=== PATIENT | male | born 1945 | race Caucasian/White ===

== ENCOUNTER 2019-05-23 08:45 | Day surgery (SDC) | payer MEDICARE, BC ==
[~2019-05-23] VITALS: Ht 172.7 cm; Wt 98.4 kg
--- NOTE | ~2019-05-23 | OP ---
PATIENT NAME: RENAN FORD MEDICAL RECORD: [id number] :47 LOCATION:D.OPS ADMISSION DATE: SURGEON: RENAN SANCHEZ MD DATE OF OPERATION: 05/23/2019 PREOPERATIVE DIAGNOSES: 1. Intractable symptomatic external hemorrhoids. 2. 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 POSTOPERATIVE DIAGNOSES: 1. Intractable symptomatic external hemorrhoids. 2. 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 3. Anal ulcer at the 4-5 o'clock position. PROCEDURES: 1. Procedure for prolapse and hemorrhoids. 2. Incisional biopsies of the anus. SURGEON: Renan Sanchez MD CHIEF INNOVATION OFFICER: None. BLOOD LOSS: Less than 25 cc. ANESTHESIA: General. COMPLICATIONS: None. The risks, possible complications, and alternatives to the procedure were explained to the patient. He elects to proceed. The discussion specifically included, but was not limited to, bleeding requiring emergency reoperation, infection, as well as possible need for additional hemorrhoidal procedure in the future. The patient has undergone a hemorrhoidectomy in the distant past. OPERATIVE COURSE: The patient was conveyed to the operating room electively on 05/23/2019. General anesthesia was induced by the anesthesia staff. The patient was placed in the lithotomy position with the buttocks taped laterally. The anus and perianal areas were sterilely prepped and draped. I dilated the anus laterally to 3 fingers. The PPH dilator and clear retractor were then placed. The clear retractor was then sutured to the surrounding anoderm with 2-0 silks. A mucosal pursestring suture of 3-0 Prolene was applied 1 cm cephalad to the clear retractor. The PPH stapling device was inserted and the pursestring suture was closed and then tied. The anvil was cephalad to this pursestring suture. I then tightened down on the PPH device. It was held in place for 3 minutes and then fired. It was then removed. There was an entire donut of rectal mucosal and upper hemorrhoidal tissue within the stapling device. Bleeding along the anastomotic staple line was controlled with a suture ligature of 3-0 Vicryls. Three internal hemorrhoidal bundles were suture ligated with 3-0 Vicryls. There was an ulcerated area from 4-5 o'clock with the patient in the lithotomy position. I noted no evidence of any condylomata. This ulcerated OPERATIVE REPORT [id number] RENAN FORD area was then biopsied with an ENT biopsy forceps. Hemostasis was achieved with the electrocautery. A combination of Marcaine and a steroid preparation were used to infiltrate the perianal tissues. Gelfoam was then applied within the anus and lower rectum. A topical anesthetic cream was applied to the external hemorrhoids. The patient was then extubated and conveyed to the post-anesthesia care unit, where he was in stable condition. He will be dismissed home on hydrocodone as well as Valium and Colace. I will see him in the office in 2-3 weeks. TRANSINT:[id number] Voice Confirmation ID: [id number] DOCUMENT ID: [id number] RENAN SANCHEZ MD CC: [id number] DICTATION DATE: 05/24/19 0858 EMERGENCY ROOM TECHNICIAN: 05/24/19 0921 [facility] [place] 05/23/19 [id number] [place] [address]
[~2019-05-23 08:45] MED LIST: CARAFATE1 G PO; CELEXA40 MG PO; FLOMAX0.4 MG PO; K-DUR20 MEQ PO; LIPITOR80 MG PO; LISINOPRIL-HCT1 EAC7 PO; OMEPRAZOLE DR 20 MG
[2019-05-23 09:31] LABS: HEMATOCRIT 44.1 % (42.0-54.0); HEMOGLOBIN 15.6 g/dL (13.5-17.5); MCH 30.5 pg (26.0-34.0); MCHC 35.4 g/dL (31.0-37.0); MCV 86.1 fL (80.0-100.0); RBC 5.12 10x6/uL (4.20-6.10); RDW 12.8 % (11.5-14.5); WBC 8.6 10x3/uL (4.8-10.8)
--- NOTE | 2019-05-23 10:10 | NUR ---
[employer] CALLED FOR A PSYCH EVALUATION.
[2019-05-23 10:21] VITALS: BP 113/62; Ht 172.7 cm; Wt 98.4 kg
--- NOTE | 2019-05-23 10:46 | NUR ---
STAFF MEMBER FROM [facility] HERE FOR EVALUATION.
--- NOTE | 2019-05-23 11:01 | NUR ---
DR. ARAGON NOTIFIED AND REVIEWED PT'S BEHAVIOR AND ASSESSMENT RESULTS. PT IS A LOW RISK PER DR. ARAGON. DR. ARAGON STATED TO GIVE RESOURCES TO PT AT TIME OF DISCHARGE. NO FURTHER ORDERS AT THIS TIME. RESOURCES REVIEWED WITH PT AND HE VERBALIZED UNDERSTANDING.
--- NOTE | 2019-05-23 20:55 | NUR ---
PATIENT AMBULATES TO BATHROOM AND VOIDS IN TOILET, NOT WITNESSED BY NURSE. PATIENT STATES "IT WASN'T A WHOLE LOT, BUT THERE WAS A STREAM." PIV DC'D WITH TIP INTACT. PATIENT DRESSING IN PERSONAL CLOTHING. DISCHARGE INSTRUCTIONS REVIEWED WITH PATIENT
--- NOTE | 2019-05-23 21:10 | NUR ---
DISCHARGED HOME VIA WHEELCHAIR TO PRIVATE VEHICLE WITH FRIEND
== END 2019-05-23 21:10 | disposition home or self-care (01) ==
LOC: D.OPS 08:45 → D.PAN 10:45 → D.OPS 11:00
PROVIDERS: Anesthesiology; ATTEND Surgery
DX: K64.4 Residual hemorrhoidal skin tags (principal); K64.2 Third degree hemorrhoids; K62.6 Ulcer of anus and rectum; Z01.812 Encounter for preprocedural laboratory examination

== ENCOUNTER 2019-06-05 09:31 | Emergency (ER) | payer MEDICARE, BC ==
[~2019-06-05] VITALS: Ht 172.7 cm; Wt 102.3 kg
[2019-06-05 09:38] VITALS: Ht 172.7 cm; Wt 102.3 kg
[2019-06-05 10:15] LABS: BASOPHILS 0.1 % (0-2); EOSINOPHILS 1.2 % (0-7); HEMATOCRIT 28.1 % (42.0-54.0); HEMOGLOBIN 9.3 g/dL (13.5-17.5); IMMATURE GRANULOCYTES 0.2 % (0-5); LYMPHOCYTES 11.9 % (15-50); MCH 29.6 pg (26.0-34.0); MCHC 33.1 g/dL (31.0-37.0); MCV 89.5 fL (80.0-100.0); MEAN PLATELET VOLUME 7.8 fL (7.4-10.4); MONOCYTES 8.7 % (2-11); NEUTROPHILS 77.9 % (40-80); PLATELET COUNT 283 10x3/uL (130-400); RBC 3.14 10x6/uL (4.20-6.10); RDW 13.6 % (11.5-14.5); WBC 12.7 10x3/uL (4.8-10.8)
[2019-06-05 10:20] LABS: ALBUMIN 2.5 g/dL (3.4-5.0); ANION GAP 13.9 mmol/L (8-16); BILIRUBIN - TOTAL 0.36 mg/dL (0.2-1.3); CALCIUM 8.5 mg/dL (8.5-10.1); CARBON DIOXIDE 26.1 mmol/L (21.0-32.0); CREATININE - SERUM 5.5 mg/dL (0.6-1.3); PROTEIN - SERUM 6.9 g/dL (6.4-8.2)
[2019-06-05 10:30] LABS: APPEARANCE CLEAR (CLEAR); BACTERIA FEW /hpf (NONE SEEN); BILIRUBIN NEGATIVE (NEGATIVE); COLOR YELLOW (YELLOW); EPITHELIAL CELLS RARE /hpf (0-5); GLUCOSE NEGATIVE (NEGATIVE); KETONE NEGATIVE (NEGATIVE); NITRITE NEGATIVE (NEGATIVE); PROTEIN NEGATIVE (NEGATIVE); RED CELLS - URINE 0-5 /hpf (0-5); UROBILINOGEN NORMAL (NORMAL)
[2019-06-05 10:31] LABS: WHITE CELLS - URINE NSEEN /hpf (0-5)
[2019-06-05] MEDS ORDERED: CIPRO500 MG PO (14:12)
[2019-06-05 15:42] VITALS: BP 128/68
== END 2019-06-05 15:40 | disposition home or self-care (01) ==
LOC: D.ER 09:31
PROVIDERS: Family Medicine
DX: N13.30 Unspecified hydronephrosis (principal); N32.89 Other specified disorders of bladder; K59.03 Drug induced constipation; N40.0 Benign prostatic hyperplasia without lower urinary tract symptoms

== ENCOUNTER 2019-06-06 08:54 | Emergency (ER) | payer MEDICARE, BC ==
[~2019-06-06] VITALS: Ht 172.7 cm; Wt 102.3 kg
[~2019-06-06 08:54] MED LIST changes: +CIPRO500 MG PO
[2019-06-06 08:59] VITALS: Ht 172.7 cm; Wt 102.3 kg
[2019-06-06 09:37] LABS: BASOPHILS 0.1 % (0-2); EOSINOPHILS 0.5 % (0-7); HEMATOCRIT 26.4 % (42.0-54.0); HEMOGLOBIN 8.8 g/dL (13.5-17.5); IMMATURE GRANULOCYTES 0.4 % (0-5); LYMPHOCYTES 6.2 % (15-50); MCH 29.4 pg (26.0-34.0); MCHC 33.3 g/dL (31.0-37.0); MCV 88.3 fL (80.0-100.0); MEAN PLATELET VOLUME 7.9 fL (7.4-10.4); MONOCYTES 9.9 % (2-11); NEUTROPHILS 82.9 % (40-80); PLATELET COUNT 285 10x3/uL (130-400); RBC 2.99 10x6/uL (4.20-6.10); RDW 13.4 % (11.5-14.5); WBC 15.1 10x3/uL (4.8-10.8)
[2019-06-06 09:49] LABS: INR 1.13 (0.85-1.17)
[2019-06-06 09:51] LABS: ALBUMIN 2.3 g/dL (3.4-5.0); ANION GAP 12.7 mmol/L (8-16); BILIRUBIN - TOTAL 0.35 mg/dL (0.2-1.3); CALCIUM 8.7 mg/dL (8.5-10.1); CARBON DIOXIDE 26.3 mmol/L (21.0-32.0); PROTEIN - SERUM 6.6 g/dL (6.4-8.2)
[2019-06-06 09:52] LABS: CREATININE - SERUM 2.6 mg/dL (0.6-1.3)
[2019-06-06 11:00] VITALS: BP 129/66
== END 2019-06-06 11:00 | disposition home or self-care (01) ==
LOC: D.ER 08:54
PROVIDERS: Family Medicine
DX: R31.9 Hematuria, unspecified (principal); N17.9 Acute kidney failure, unspecified; D64.9 Anemia, unspecified; N32.89 Other specified disorders of bladder

== ENCOUNTER 2019-06-26 07:47 | Day surgery (SDC) | payer MEDICARE, BC ==
[2019-06-24 11:44] LABS: HEMATOCRIT 35.9 % (42.0-54.0); MCH 29.6 pg (26.0-34.0); MCHC 33.4 g/dL (31.0-37.0); MCV 88.6 fL (80.0-100.0); MEAN PLATELET VOLUME 7.9 fL (7.4-10.4); RBC 4.05 10x6/uL (4.20-6.10); RDW 13.2 % (11.5-14.5); WBC 5.2 10x3/uL (4.8-10.8)
[2019-06-24 12:00] LABS: CALC OSMOLALITY 273 mosm/kg (275-300); CALCIUM 9.2 mg/dL (8.5-10.1); CARBON DIOXIDE 29.3 mmol/L (21.0-32.0); CHLORIDE - SERUM 100 mmol/L (98-107); GLUCOSE 103 mg/dL (74-106); SODIUM 136 mmol/L (136-145); UREA NITROGEN 18 mg/dL (7-18); eGFR NON AFRICAN AMERICAN 78 mL/min (90-120)
[~2019-06-26] VITALS: Ht 172.7 cm; Wt 95.9 kg
[2019-06-26] VITALS (11 sets, daily range): BP systolic 113–136; BP diastolic 59–79; Ht 172.7 cm; Wt 95.9 kg
[~2019-06-26 07:47] MED LIST changes: +ACETAMINOPHEN500 M1 PO; -OMEPRAZOLE DR 20 MG; +OMEPRAZOLE20 M1 PO
--- NOTE | 2019-06-26 13:24 | OP ---
PATIENT NAME: RENAN FORD MEDICAL RECORD: [id number] :47 LOCATION:D.MS Steven2202 ADMISSION DATE:06/26/19 SURGEON: RENAN SOTO MD DATE OF OPERATION: 06/26/2019 SURGEON: Renan Soto MD ANESTHESIA: TIVA by Dwayne Abreu CRNA DIAGNOSES: 1. Elevated PSA of 4.0. 2. 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 PROCEDURES: 1. Transrectal ultrasound and prostate biopsy. 2. UroLift times 6 implants. FINDINGS: On transrectal ultrasound, 90-gram prostate. Cystoscopy shows long obstructive lateral lobes with no median lobe. There were single ureteral orifices bilaterally, with no bladder tumors. The bladder is trabeculated. BLOOD LOSS: Minimal. CLINICAL HISTORY: This is a 74-year-old male, who came to the Emergency Room with urinary retention. They drained about 3 liters of urine from his bladder when the catheter was inserted. When he was in [place], he was being investigated for possible prostate cancer. At that time, he moved here and the prostate biopsy was never done. His PSA is 4.0 on 12/24/2018. He comes today to have a prostate biopsy done and also the UroLift procedure done to relieve his obstruction. HE IS ALLERGIC TO SULFA AND HYDROCODONE. We gave him [employer] camp recreation specialist to the OR. DESCRIPTION OF PROCEDURE: The patient was given IV sedation. He was then placed into lithotomy position. We first did the transrectal ultrasound. The probe was introduced and prostate size measurements were obtained. The prostate was quite large at 90 grams. Sextant biopsies were then obtained with at least 3 cores from each sextant. Once all the specimens were obtained, then the procedure was terminated. He was reprepped and redraped. The UroLift scope was introduced using the visual obturator. The penile urethra shows no strictures. The bilateral lateral lobes are obstructive, meeting in the midline. There is no significant median lobe. Into the bladder, we saw no bladder tumors. The bladder is trabeculated consistent with outlet obstruction. We then placed our first 2 units at the bladder neck level. These were placed 1.5 cm distal to the bladder neck at the anterolateral sulcus of the lateral lobes. One unit was placed on each side. This helped to open up the bladder neck region. The next 2 units were then placed at the level of the verumontanum. One unit was placed on each side at the anterolateral sulcus of the lateral lobes. Finally looking in with the obturator again we noticed that the mid portion of the prostate was still obstructive. We therefore placed 2 more units, one on each side. This was now at the mid urethral height at the mid urethral position. Once all these implants had been placed, then further cystoscopy showed a wide open urethral channel. The scope was then removed, leaving the fluid in the bladder. A 16-Samoan Kelly catheter was then inserted into the bladder and the balloon was inflated with 10 cc of sterile water. I will see him in followup next week to review the pathology results with him and also to see the effects of catheter OPERATIVE REPORT [id number] RENAN FORD removal on his urinary retention. TRANSINT:[id number] Voice Confirmation ID: [id number] DOCUMENT ID: [id number] RENAN SOTO MD at 1324 CC: [id number] DICTATION DATE: 06/26/19 1207 SENIOR PRODUCTION MANAGER: 06/26/19 1313 ADM IN [facility] [address] [place] [address]
--- NOTE | 2019-06-26 17:18 | NUR ---
DR. ARAGON NOTIFIED AND REVIEWED PT'S BEHAVIOR AND ASSESSMENT RESULTS. PT IS A LOW RISK PER DR. ARAGON. DR. ARAGON STATED TO GIVE RESOURCES TO PT AT TIME OF DISCHARGE. NO FURTHER ORDERS AT THIS TIME. RESOURCES REVIEWED WITH PT AND HE VERBALIZIED UNDERSTANDING.
[2019-06-27 00:12] VITALS: BP 101/54
[2019-06-27 06:35] VITALS: BP 95/53
[2019-06-27 08:34] VITALS: BP 111/52
--- NOTE | 2019-06-27 10:36 | NUR ---
IV THERAPY REMOVED FROM LEFT FOREARM. DISCHARGE INSTRUCTIONS GIVEN. PATIENT VERBALIZED UNDERSTANDING. ROSAS INSTRUCTIONS GIVEN AND VERBALIZED UNDERSTANDING. REFUSED WHEELCHAIR DOWNSTAIRS. REFUSED LEG BAG BUT REITERATED TEACHING OF CHANGING THE BAGS SINCE HE HAD A LEG BAG AT HOME.
== END 2019-06-27 10:38 | disposition home or self-care (01) ==
LOC: OBSVTIME → D.OPS 07:47 → D.MS 12:13 → D.OPS 12:50 → D.MS 12:51 → D.OPS 12:51 → OBSVTIME 12:51 → D.PAN 13:30 → D.OPS 13:30 → D.MS 06-27 10:38 → D.OPS 06-27 10:38
PROVIDERS: Anesthesiology; ATTEND Urology
DX: N32.0 Bladder-neck obstruction (principal); R33.9 Retention of urine, unspecified
CPT/HCPCS: 55700; C9740

== ENCOUNTER → 2019-07-02 19:41 | Outpatient (CLI) | payer MEDICARE, BC ==
[2019-06-26 15:51] VITALS: BMI 32.1
== END | disposition home or self-care (01) ==
LOC: D.LABREF 19:41
PROVIDERS: ATTEND Urology
DX: R31.9 Hematuria, unspecified (principal)

== ENCOUNTER → 2021-05-06 09:07 | Outpatient (CLI) | payer MEDICARE, BC ==
[2019-06-26 15:51] VITALS: BMI 32.1
== END | disposition home or self-care (01) ==
LOC: D.HCCECHO 09:07
PROVIDERS: ATTEND Internal Medicine Cardiovascular Disease
DX: R06.09 Other forms of dyspnea (principal)

== ENCOUNTER 2021-05-18 06:42 | Day surgery (SDC) | payer MEDICARE, BC ==
[~2021-05-18] VITALS: Ht 172.7 cm; Wt 109.1 kg
--- NOTE | ~2021-05-18 | HEMODYNAMI ---
PATIENT:JESSICA FORD MEDICAL RECORD: [id number] : 49 LOCATION:D.CAT ADMISSION DATE: 05/18/21 Generatedon:18:44 Patient name: JESSICA FORD Patient #: [id number] SSN: [id number] : 1945 Date of study: 05/18/2021 Page: Of Hemodynamic Procedure Report Patient Data Patient Demographics Procedure consent was obtained First Name: JESSICA Gender: Male Last Name: LILIANA : 1945 Middle Initial: ELDA Age: 75 year(s) Patient #: [id number] Race: SSN: [id number] Additional ID: [id number] Contact details Address: [address] [place] [address] State: [place] City: [place] Zip code: [address] Past Medical History Performed procedures and imaging results Date Procedure Procedure Results Comments 05/06/2021 Stress testing Positive->Intermediate with SPECT MPI risk Allergies Allergen Reaction Date Comments Reported Other allergy 05/18/2021 CELEBREX, HYDROCODONE, IBUPROFEN, SULFA Admission Admission Data Admission Date: 05/18/2021 Admission Time: 6:42 Arrival Date: 05/18/2021 Arrival Time: 0:00 Admit Source: Other Insurance Payor: Private health insurance [facility] #: [id number] Height (in.): 68 BSA: 2.21 (m2) Height (cm.): 172.72 BMI: 36.57 (kg/m2) Weight (lbs.): 240.5 Weight (kg.): 109.09 Lab Results Lab Result Date: 05/18/2021 Lab Result Time: 0:00 Biochemistry Name Units Result Min Max BUN mg/dl 16 --(---*)-- 7 18 Creatinine mg/dl 0.9 --(-*--)-- 0.6 1.3 eGFR ml/min 88.01133 -*(----)-- 90 120 NONAFRICAN CBC Name Units Result Min Max Hematocrit % 44.9 --(*---)-- 42 54 Hemoglobin g/dl 15.3 --(-*--)-- 13.5 17.5 Procedure Procedure Types Cath Procedure Diagnostic Procedure [facility] w/Coronaries FFR/IVUS FFR Initial Sedation Charges Moderate Sedation 10-24 minutes PCI Procedure Hemochron ACT Test Procedure Description Procedure Date Procedure Date: 05/18/2021 Procedure Start Time: 8:20 Procedure End Time: 8:40 Procedure Staff Name Function William Dunham MD Performing Physician Daquan Arango RN Nurse Addie Abraham RT Monitor Tara Velasquez RT Scrub Indication Dyspnea with exertion Pulmonary hypertension Procedure Data Cath Procedure Fluoroscopy Diagnostic fluoroscopy Total fluoroscopy Time: 4.3 time: 4.3 min min Diagnostic fluoroscopy Total fluoroscopy dose: 677 dose: 677 mGy mGy Contrast Material Contrast Material Type Amount (ml) Isovue 370 70 Entry Location Entry Primary Successful Side Size Upsize Upsize Entry Closure Grimm ccessful Closure Location (Fr) 1 (Fr) 2 (Fr) Remarks Device Remarks Radial Right 6 Fr Mechanical artery Short Compression Estimated blood loss: 12 ml Diagnostic catheters Device Type Used For End Catheter Placement DIAGNOSTIC [place] 110cm 5 Procedure Fr catheter ([id number]) Procedure Complications No complications Procedure Medications Medication Administration Route Dosage Oxygen etCO2 Nasal cannula 2 l/min Lidocaine 2% added to field 20 Heparin Flush Bag added to field 2 bags (1000units/500ml NS) 0.9% NaCl I.V. 100 ml/hr Radial Cocktail added to field 1 syringe (Verapamil 2mg/Nitro 400mcg/Heparin 1500units) Versed I.V. 1 mg Fentanyl I.V. 50 mcg Versed I.V. 1 mg Fentanyl I.V. 50 mcg Heparin Bolus I.V. 5000 units Hemodynamics Rest BSA: 2.21 (m2) HGB: 15.3 (g/dl) O2 Consumption: Estimated: 264.25 (ml/min) O2 Co nsumption indexed: Estimated:119.57 (ml/min/m) Heart Rate: 81 (bpm) Pressure Samples Time Site Value (mmHg) Purpose Heart Use Rate(bpm) 8:23 LV 158/-11,44 Snapshot 89 8:24 AO 119/60(82) Pullback 94 8:24 LV 140/-1,18 Pullback 94 Gradients Valve Time Site 1 Site 2 Mean SEP/DFP Peak To Heart Use (mmHg) (sec/min) Peak Rate (mmHg) (bpm) Aortic 8:24 LV AO 14 8 21 94 140/-1,18 119/60(82) Calculations Valve P-P Mean Valve Index Valve Source Name Gradient Area Flow (cm2) Aortic 21 14 21 14 Snapshots Pre Cath Intra NCS Post Cath Vital Signs Time Heart Resp SPO2 etCO2 NIBP (mmHg) Rhythm Pain Sedation Rate (ipm) (%) (mmHg) Status Level (bpm) 7:59:38 85 14 93 0 138/79(112) NSR 0 (11) 10(A) , No pain 8:05:54 82 14 95 0 128/83(111) NSR 0 (11) 10(A) , No pain 8:10:57 84 13 93 0 131/111(125) NSR 0 (11) 10(A) , No pain 8:15:51 85 14 92 0 126/74(99) NSR 0 (11) 10(A) , No pain 8:20:28 84 12 92 0 130/72(103) NSR 0 (11) 9(A) , No pain 8:25:56 87 15 93 0 125/73(109) NSR 0 (11) 9(A) , No pain 8:30:21 85 17 94 0 109/72(103) NSR 0 (11) 9(A) , No pain 8:35:20 81 15 96 0 Measuring NSR 0 (11) 9(A) , No pain 8:36:38 79 15 96 0 124/75(99) NSR 0 (11) 9(A) , No pain 8:42:26 78 14 96 0 125/77(104) NSR 0 (11) 10(A) , No pain Medications Time Medication Route Dose Verified Delivered Reason Note s Effectiveness by by 8:00:34 Oxygen etCO2 2 l/min Willima Buffie used for Nasal Roly Arango RN procedure cannula 8:00:42 Lidocaine 2% added 20ml William William for local to vial Roly Dunham MD anesthetic field 8:00:48 Heparin Flush added 2 bags William William used for Bag to Roly Dunham MD procedure (1000units/500ml field NS) 8:00:57 0.9% NaCl I.V. 100 William Buffie Per physician ml/hr Roly Arango RN 8:15:14 Versed I.V. 1 mg William Buffie for sedation Roly Arango RN 8:15:20 Fentanyl I.V. 50 mcg William Buffie for sedation Roly Arango RN 8:22:30 Radial Cocktail added 1 William William for (Verapamil to syringe Roly Dunham MD vasodilation 2mg/Nitro field 400mcg/Heparin 1500units) 8:24:14 Versed I.V. 1 mg William Buffie for sedation Roly Arango RN 8:24:17 Fentanyl I.V. 50 mcg William Buffie for sedation Roly Arango RN 8:32:44 Heparin Bolus I.V. 5000 William Buffie for veri fied units Roly Arango RN anticoagulation with dr dunham Procedure Log Time Note 7:21:30 Informed consent obtained and on chart 7:21:48 Arrival Date: 05/18/2021 12:00:00 AM 7:21:50 Admit Source: Other 7:21:52 Insurance Payor : Private health insurance 7:23:10 Patient Height : 68 inches 7:23:18 Patient Weight : 240.5 lbs 7:24:03 ACC Patient presents with Stable Angina CCS Anginal Class 2--Slight limitation of ordinary activity. 7:24:06 Procedure Status Elective Heart Cath (OP). 7:24:07 Time tracking: Regular hours (M-F 7:00 - 5:00) 7:24:12 Plan of Care:Hemodynamics will remain stable., Cardiac rhythm will remain stable., Comfort level will be maintained., Respiratory function will remain adequate., Patient/ family verbilizes understanding of procedure., Procedure tolerated without complication., Recovers from procedure without complications.. 7:25:13 H&P Date Dictated: 04/21/2021 Within 30 days and on chart.. 7:25:30 Stress Test: yes; abnormal INFERIOR 7:25:32 Alarms reviewed by R. N. 7:25:32 Sharps counted by scrub and verified by R.NNicole 7:27:01 Indication : Dyspnea with exertion 7:27:17 Indication : Pulmonary hypertension 7:30:22 Patient allergic to Other allergyCELEBREX, HYDROCODONE, IBUPROFEN, SULFA 7:42:36 Lab Result : Hemoglobin 15.3 g/dl 7:42:36 Lab Result : Hematocrit 44.9 % 7:42:52 Daquan Arango RN sent for patient. Start room use. 7:47:04 Patient received from Pre/Post Procedure Room to CCL 1 Alert and oriented. Tansferred to table in Supine position. 7:47:06 Warm blankets applied, and kimberley hugger turned on for patient comfort. 7:47:06 Correct patient and procedure confirmed by team. 7:47:07 ECG and BP/O2 sat monitors applied to patient. 7:47:08 Full Disclosure recording started 7:47:09 Pre-procedure instructions explained to patient. 7:47:10 Pre-op teaching completed and patient verbalized understanding. 7:47:11 Family in waiting room. 7:47:13 Patient NPO since Midnight. 7:47:36 Lab Result : eGFR NONAFRICAN 88.91849 ml/min 7:47:36 Lab Result : Creatinine 0.9 mg/dl 7:47:36 Lab Result : BUN 16 mg/dl 7:58:22 Vital chart was started 7:58:25 Baseline sample Acquired. 7:58:29 Rhythm: sinus rhythm 7:58:35 Is the patient allergic to Iodine/contrast media? No. 7:58:36 Was the patient premedicated? Yes 7:58:38 Is patient on blood thinner?No 7:58:45 Patient diabetic? Yes. 7:58:47 If diabetic: On Metformin? No 7:58:50 ----Pre-sedation anethsthesia assessment.---- 7:59:04 Previous problem with sedation/anesthesia? Yes NAUSEA 7:59:08 Snore? Yes 7:59:09 Sleep apnea? No 7:59:11 Deviated septum? No 7:59:12 Opens mouth fully? Yes 7:59:13 Sticks out tongue? Yes 7:59:19 Airway obstruction? Yes ASTHMA 7:59:23 Dentures? No ? 7:59:27 Pre procedure: right dorsailis pedis pulse 2+ Normal; easily identifiable; not easily obliterated 7:59:29 Modified Leonard's test Ulnar < 7 seconds 7:59:32 Patient pain scale 0/10 ?. 7:59:37 IV patent on arrival in left wrist with 0.9% NaCl at O. 7:59:40 Lab results completed and on chart. 7:59:46 Right Radial & Right Groin area was prepped with chlora-prep and draped in sterile fashion 7:59:49 Use device set Radial Dx or PCI 7:59:50 ACIST Syringe (32057) opened to sterile field. 7:59:50 Medline Cath Pack ([id number]) opened to sterile field. 7:59:51 Bag Decanter (2002S) opened to sterile field. 7:59:51 ACIST Hand Control (00707) opened to sterile field. 7:59:52 ACIST Manifold (14094) opened to sterile field. 7:59:53 MBrace Wrist Support ([id number]) opened to sterile field. 7:59:54 NEEDLE Cook 21G 4cm Radial ([id number]) opened to sterile field. 7:59:55 SHEATH 6FR RAIN ([id number]) opened to sterile field. 7:59:56 EMERALD Guide Wire (070-728) opened to sterile field. 8:00:34 Oxygen 2 l/min etCO2 Nasal cannula was administered by Daquan Arango RN; used for procedure; Verbal order read back and verified. 8:00:42 Lidocaine 2% 20ml vial added to field was administered by William Dunham MD; for local anesthetic; Verbal order read back and verified. 8:00:48 Heparin Flush Bag (1000units/500ml NS) 2 bags added to field was administered by William Dunham MD; used for procedure; Verbal order read back and verified. 8:00:57 0.9% NaCl 100 ml/hr I.V. was administered by Daquan Arango RN; Per physician; Verbal order read back and verified. 8:13:21 --------ALL STOP TIME OUT------ 8:13:22 Final Timeout: patient, procedure, and site verified with staff and physician. All members of the team are in agreement. 8:13:28 Right Radial & Right Groin site verified by team. 8:13:32 Fire Safety Assessment: A--An alcohol-based skin anteseptic being used preoperatively., C--Open oxygen or nitrous oxide is being used., D--An ESU, laser, or fiber-optic light is being used. 8:13:37 Physical assessment completed. ASA score P 2 - A patient with mild systemic disease as per William Dunham MD. 8:13:40 2) 60-89 Mildly reduced kidney function, and other findings (as for stage 1) point to kidney disease. 8:13:43 Maximum allowable contrast dose (3.7 X eGFR X 0.75)244 ml. 8:13:47 Sedation plan: IV Moderate Sedation Medication:Versed, Fentanyl 8:15:14 Versed 1 mg I.V. was administered by Daquan Arango RN; for sedation; Verbal order read back and verified. 8:15:20 Fentanyl 50 mcg I.V. was administered by Daquan Arango RN; for sedation; Verbal order read back and verified. 8:19:19 Procedure started. 8:20:21 Local anesthetic to right radial artery with Lidocaine 2% by William Dunham MD.INITIAL ACCESS ONLY 8:21:32 A 6 Fr Short sheath was inserted into the Right Radial artery 8:22:20 A DIAGNOSTIC [place] 110cm 5 Fr catheter ([id number]) was advanced over the wire and used for Procedure. 8:22:30 Radial Cocktail (Verapamil 2mg/Nitro 400mcg/Heparin 1500units) 1 syringe added to field was administered by William Dunham MD; for vasodilation; Verbal order read back and verified. 8:23:28 LV gram done using WEEMS 8:23:47 LV hemodynamics recorded. 8:23:50 Injector settings: Ml/sec: 5, Volume: 15, 8:24:02 EF : 55 % 8:24:14 Versed 1 mg I.V. was administered by Daquan Arango RN; for sedation; Verbal order read back and verified. 8:24:17 Fentanyl 50 mcg I.V. was administered by Daquan Arango RN; for sedation; Verbal order read back and verified. 8:24:20 LCA angiography performed. 8:24:22 Injector settings: Ml/sec: 3, Volume: 6, 8:25:58 RCA angiography performed. 8:26:01 Injector settings: Ml/sec: 3, Volume: 6, 8:27:07 ACCDominant side:Right 8:30:16 Catheter removed. 8:30:30 Proceeding to intervention. 8:30:35 Use device set DUNHAM PCI 8:30:36 TUBING High Pressure Extension Tubing (Roly) ([id number]) opened to sterile field. 8:30:53 Whiting OmniWire (88303) opened to sterile field. 8:30:54 INFLATOR Merit BasixCompak (GN9107) opened to sterile field. 8:30:57 GUIDE 6FR XBLAD 3.5 catheter ([id number]) opened to sterile field. 8:32:18 6 Fr XBLAD 3.5 guide catheter was inserted over the wire 8:32:44 Heparin Bolus 5000 units I.V. was administered by Daquan Arango RN; for anticoagulation; verified with dr dunham Verbal order read back and verified. 8:32:56 Pressure wire advanced. 8:34:17 Wire advanced across lesion. 8:37:04 LAD lesion measured at .96 with IFR 8:37:15 Wire removed. 8:37:16 Guide catheter removed. 8:37:28 ZEPHYR REGULAR TR BAND (236115) opened to sterile field. 8:37:58 Sheath removed intact; hemostasis achieved with Mechanical Compression to the Right Radial artery. 8:38:09 Fluoroscopy time 04.30 minutes. 8:38:12 Flurop Dose total: 677 8:38:12 Fluoroscopy dose: 677 mGy 8:38:17 Dose Area Product 93943 mGy/cm. 8:38:20 Contrast amount:Isovue 370 70ml. 8:38:23 Maximum allowable dose exceeded? No. 8:38:24 Sharps counted by scrub and verified by R.N. 8:38:25 Procedure ended.(Physican Out) 8:38:37 Phoenix band inflated with 10cc of air. 8:38:46 Post Procedure Pulses reassessed and unchanged 8:38:50 Post procedure: right dorsailis pedis pulse 2+ Normal; easily identifiable; not easily obliterated. 8:38:52 Post-procedure physical assessment completed. ASA score P 2 - A patient with mild systemic disease as per William Dunham MD. 8:38:55 Post procedure rhythm: unchanged. 8:38:57 Estimated blood loss: 12 ml 8:38:59 Post procedure instruction explained to patient.Patient verbalizes understanding. 8:39:02 Patient needs reinforcement of post procedure teaching. 8:39:16 Procedure type changed to Cath procedure, Diagnostic procedure, LHC, LHC w/Coronaries, FFR/IVUS, FFR Initial, Sedation Charges, Moderate Sedation 10-24 minutes, PCI procedure, Hemochron ACT Test 8:40:33 Procedure and supply charges have been captured, reviewed, submitted and are correct. 8:40:37 Procedure Complication : No complications 8:40:40 [facility] Findings: MVD- PCI performed (see procedure note) 8:40:43 Operative report dictated upon procedure completion. 8:40:44 See physician's report for complete and final results. 8:40:45 Report given to Pre/Post Procedure Room. 8:40:48 Patient transfered to Pre/Post Procedure Room with Stretcher. 8:40:50 Procedure ended. 8:40:50 Full Disclosure recording stopped 8:40:56 End room use (Document Last) 8:44:04 ACT drawn and resulted at 344 seconds. (normal therapeutic range 180-240 seconds). 8:44:27 Vital chart was stopped Device Usage Item Name Manufacture Quantity Catalog Hospital Part Current Minima l Lot# / Number Charge Number Stock Stock Serial# Code ACIST Acist 1 77320 587880 [id number] [id number] 20 Syringe Medical (32869) Systems Inc Medline Medline 1 [id number] 102775 45280 454625 5 Cath Pack ([id number]) Bag Microtek 1 2001S 077538 39825 858328 5 Decanter Medical Inc. () ACIST Hand Acist 1 09560 432023 429527 845718 5 Control Medical (94177) Systems Inc ACIST Acist 1 19431 206848 476572 132328 5 Manifold Medical (39258) Systems Inc MBrace Advanced 1 140-0250-00 641791 88382 882637 5 Wrist Vascular Support Dynamics ([id number]) NEEDLE SatNav Technologies Medical 1 V36644 794037 446452 854722 5 21G 4cm Radial (E23965) SHEATH 6FR Cardinal 1 9798256 505999 2320897 257091 5 [facility] (5564627) EMERALD Cardinal 1 108-455 881374 764533 345022 5 Guide Wire [facility] (268-988) DIAGNOSTIC Terumo 1 40-1433 622324 448400 272302 5 [place] 110cm 5 Fr catheter (900657) TUBING High Merit 1 [id number] 651242 32952 596033 10 Pressure Medical Extension Tubing (Roly) (MG3613Z) Whiting Whiting 1 8000471 809234 89870 9906 5 OmniWire (30091) GUIDE 6FR Cardinal 1 [id number] 481712 266077 926004 10 XBLAD 3.5 Health catheter (46341706) ZEPHYR Cardinal 1 622254 298518 5420670 350417 5 REGULAR TR Health BAND (696631) INFLATOR Merit 1 ME9084 778518 621183 870015 15 [facility] Medical BasixCompak (PX3060) Signature Audit Byron Stage Time Signature Unsigned Intra-Procedure 05/18/2021 Addie Abraham 8:43:47 AM RT(R) Intra-Procedure 05/18/2021 Daquan Arango RN 8:44:05 AM Intra-Procedure 05/18/2021 William Dunham MD 8:44:25 AM [facility] [address] [place] [address]
[~2021-05-18 06:42] MED LIST changes: +FLUTICASONE PRO16 GM NASAL
[2021-05-18 07:11] VITALS: BP 142/81; Ht 172.7 cm; Wt 109.1 kg
[2021-05-18 07:39] LABS: BASOPHILS 0.7 % (0-2); EOSINOPHILS 1.5 % (0-7); HEMATOCRIT 44.9 % (42.0-54.0); HEMOGLOBIN 15.3 g/dL (13.5-17.5); LYMPHOCYTES 24.9 % (15-50); MCH 28.9 pg (26.0-34.0); MCV 84.9 fL (80.0-100.0); MEAN PLATELET VOLUME 7.4 fL (7.4-10.4); MONOCYTES 12.4 % (2-11); NEUTROPHILS 60.5 % (40-80); PLATELET COUNT 235 10x3/uL (130-400); RBC 5.28 10x6/uL (4.20-6.10); RDW 13.9 % (11.5-14.5); WBC 7.8 10x3/uL (4.8-10.8)
[2021-05-18 07:43] LABS: ALT (SGPT) 39 U/L (10-68); CALC OSMOLALITY 279 mosm/kg (275-300); CALCIUM 9.4 mg/dL (8.5-10.1); CARBON DIOXIDE 27.1 mmol/L (21.0-32.0); CHLORIDE - SERUM 102 mmol/L (98-107); CHOLESTEROL, TOTAL 133 mg/dL (0-200); CREATININE - SERUM 0.9 mg/dL (0.6-1.3); GLUCOSE 95 mg/dL (74-106); HDL CHOLESTEROL 44 mg/dL (32-96); LDL CHOLESTEROL 62 mg/dL (0-100); LDL-HDL RATIO 1.4 ratio (1.5-3.5); POTASSIUM - SERUM 3.5 mmol/L (3.5-5.1); SODIUM 140 mmol/L (136-145); TRIGLYCERIDE 136 mg/dL (30-200); UREA NITROGEN 16 mg/dL (7-18); eGFR NON AFRICAN AMERICAN 88 mL/min (90-120)
--- NOTE | 2021-05-18 08:51 | NUR ---
PT REC'D TO CATH RECOVERY ROOM 10 VIA STRETCHER. MONITORS ESTAB. NO FAMILY AT BS. PT ANSWERS APPROP, DENIES PAIN. VSS. SEE ADVERTISING COPYWRITER FLOWSHEETS. ALARMS ON AND C/L IN REACH.
--- NOTE | 2021-05-18 09:05 | NUR ---
R WRIST Z BAND SITE C/D/I, NO S/S BLEEDING OR SWELLING. R ARM/HAND WARM WITH PALP PULSES AND BRISK CAP REFILL. VSS. ALARMS ON AND C/L IN REACH.
--- NOTE | 2021-05-18 09:20 | NUR ---
VSS. R WRIST Z BAND SITE C/D/I, NO S/S BLEEDING OR HEMATOMA. R ARM/HAND WARM WITH PALP PULSES AND BRISK CAP REFILL. PT RESTING QUIETLY, NO S/S DISTRESS. O2 WEANED OFF AT THIS TIME. ALARMS ON AND C/L IN REACH.
--- NOTE | 2021-05-18 09:50 | NUR ---
PT RESTING QUIETLY, R Z BAND SITE C/D/I, NO S/S BLEEDING OR HEMATOMA. R ARM/HAND WARM WITH PALP PULSES AND BRISK CAP REFILL. ALARMS ON AND C/L IN REACH.
--- NOTE | 2021-05-18 10:05 | NUR ---
DR. CAMPA IN TO SEE PT, UPDATE GIVEN AND QUESTIONS ANSWERED.
--- NOTE | 2021-05-18 10:20 | NUR ---
3CC AIR REMOVED FROM Z BAND. NO S/S BLEEDING OR SWELLING, HAND WARM WITH PALP PULSES. VSS. PT DENIES PAIN OR NEEDS. WILL CONT CLOSE MONITORING. ALARMS ON AND C/L IN REACH.
--- NOTE | 2021-05-18 10:50 | NUR ---
TOTAL 5CC AIR REMOVED FROM Z BAND, NO S/S BLEEDING OR SWELLING. R ARM/HAND WARM, PULSES PALP.. SANDWICH TRAY AND OJ PROVIDED. VSS. ALARMS ON AND C/L IN REACH.
--- NOTE | 2021-05-18 11:20 | NUR ---
ALL AIR REMOVED FROM Z BAND, NO S/S BLEEDING OR SWELLING. PULSES PALP. PT VOIDED 400CC CLEAR, YELLOW URINE. VSS. ALARMS ON AND C/L IN REACH.
--- NOTE | 2021-05-18 11:42 | NUR ---
R WRIST Z BAND REMOVED, NO BLEEDING OR SWELLING NOTED, DSG APPLIED. PIV D/C'D INTACT, DSG APPLIED. PT ALLOWED UP TO GET DRESSED INDEPENDENTLY.
--- NOTE | 2021-05-18 11:49 | NUR ---
[facility] CALLED FOR PT PER HIS REQUEST.
--- NOTE | 2021-05-18 11:53 | NUR ---
PT F/U APPT CANCELLED PER PT REQUEST, HE SAID HE WILL BE OUT OF TOWN, HE WILL CALL TO RESCHEDULE WHEN HE WILL BE BACK.
--- NOTE | 2021-05-18 12:03 | NUR ---
ALL DISCHARGE INSTRUCTIONS REVIEWED WITH PT, INCLUDING RESTRICTIONS, MEDS AND F/U APPT. PT VERBALIZES UNDERSTANDING. PT NOW WAITING FOR [facility].
--- NOTE | 2021-05-18 12:25 | NUR ---
PT TAKEN OUT TO [facility] BY WHEELCHAIR. NO S/S OF DISTRESS NOTED. ALL BELONGINGS AND PAPERWORK IN HAND.
== END 2021-05-18 12:25 | disposition home or self-care (01) ==
LOC: D.CATH 06:42
PROVIDERS: ATTEND Internal Medicine Cardiovascular Disease
DX: I20.8 Other forms of angina pectoris (principal); R94.39 Abnormal result of other cardiovascular function study; R06.09 Other forms of dyspnea